=== PATIENT | female | born 1960 | race Caucasian/White ===

== ENCOUNTER 2016-05-16 08:32 | Day surgery (SDC) | payer MEDICARE ==
[2016-05-16] VITALS (12 sets, daily range): BP systolic 118–151; BP diastolic 60–82; PULSE 58–68; TEMP 97.8–98.7
[~2016-05-16] VITALS: Ht 160 cm; Wt 63.6 kg
[~2016-05-16 08:32] MED LIST: BACTROBAN 22GM22 GM TP; BETAPACE 120MG120 MG PO; CALCIUM CARBON500 MG PO; COREG 3.123.125 MG/T PO; COUMADIN 5MG5 MG/TAB PO; DIPHENHYDRAMINE25 MG PO; LASIX 20MG TABL20 MG PO; LOPRESSOR 550 MG/TAB PO; NICODERM C21 MG/PATC TOP; NITROSTAT0.4 MG/TAB SL; NORCO 325 MG-7.1 TAB PO; PRILOSEC 20MG20 MG PO; PRINIVIL10 MG PO; RESTORIL 1515 MG/CAP PO; ROXICODONE 55 MG/TAB PO; RYTHMOL225 MG PO
[2016-05-16] MEDS ORDERED: LOVENOX 6060 MG/0.6 SQ (08:56)
[2016-05-16] MEDS ORDERED: PACERONE100 MG PO (08:57)
[2016-05-16 09:30] LABS: MEAN CELL VOLUME 99 fl (80.0-100.0); MEAN CORPUSCULAR HGB CONC 32 g/dl (33.0-37.0); MEAN PLATELET VOLUME 10.2 fl (7.4-10.4); PLATELET COUNT 144 K/mm3 (130-400); RED BLOOD COUNT 3.61 M/mm3 (4.10-5.30); REDCELL DISTRIBUTION WIDTH-CV 13.7 % (11.5-14.5); WHITE BLOOD COUNT 4.2 K/mm3 (4.8-10.8)
[2016-05-16 09:31] LABS: HEMATOCRIT 35.7 % (37.0-47.0); HEMOGLOBIN 11.5 g/dl (12.5-16.0); MEAN CORPUSCULAR HEMOGLOBIN 32 pg (27.0-31.0)
[2016-05-16 09:43] LABS: CALCIUM 9.1 mg/dL (8.4-10.2); CREATININE, serum 1.2 mg/dL (0.52-1.25); POTASSIUM 4.4 mmol/L (3.4-5.0)
[2016-05-16 09:50] LABS: INR 1.2 (0.8-3.0); PROTHROMBIN TIME 13.8 SECONDS (9.7-12.8)
[2016-05-16] MEDS ORDERED: PERCOCET 325 MG1 TA2 PO (16:53)
[2016-05-17 03:48] VITALS: BP 135/57; PULSE 60; TEMP 98.8
[2016-05-17 07:59] VITALS: BP 124/70; PULSE 64; TEMP 98
[2016-05-17] MEDS ORDERED: CEPHALEXIN500 M1 PO (10:16)
== END 2016-05-17 11:35 | disposition home or self-care (01) ==
LOC: COL.RAD 08:32 → MEDICAL 13:00 → COL.RAD 05-17 11:35
PROVIDERS: Internal Medicine Interventional Cardiology
DX: T82.897A Other specified complication of cardiac prosthetic devices, implants and grafts, initial encounter (principal)
CPT/HCPCS: OP; C1769; C1894; C1895; J0690; J1650; J2250; J3010; J7030; Q9967

== ENCOUNTER 2023-11-05 20:03 | Emergency (ER) | payer MEDICARE ==
[~2023-11-05] VITALS: Ht 160 cm; Wt 59.1 kg
[~2023-11-05 20:03] MED LIST changes: +CEPHALEXIN500 M1 PO; +COUMADIN 1MG1 MG/TAB; +COUMADIN 6MG6 MG/TAB PO; +DEBROX OT; +EUTHYROX50 MCG; +EUTHYROX50 MCG PO; +FIORICET 325 MG1 TA1 PO; +K-DUR 10 MEQ T10 MEQ PO; +LEXAPRO 10MG10 MG PO; +LOVENOX 6060 MG/0.6 SQ; +METOPROLOL TART75 MG PO; +MIRALAX PA17 GM/Dose PO; +NICODERM C7 MG/PATCH TD; +NORVASC 5MG5 MG/TAB PO; +PACERONE100 MG PO; +PERCOCET 325 MG1 TA2 PO; +PREDNISONE20 MG PO; +PROAIR HFA0.09 MG/AC IH; +RT ADVAIR 528 DISKUS IH; +RT SPIRIVA18 MCG IH; +SENNA-S 50 MG-81 TAB PO; +TOPROL XL 25MG25 MG PO; +TOPROL XL100 MG PO; +TYLENOL 500MG500 MG PO; +VENTOLIN0.09 MG IH; +WIXELA 500-501 EACH IH; +ZOFRAN ODT4 MG PO
[2023-11-05 20:08] VITALS: TEMP 101.2
[2023-11-05 21:43] LABS: COLLECTION METHOD CLEAN CATCH
[2023-11-05 21:47] LABS: BASO % 0.5 % (0.0-2.0); EOS % 0.5 % (0.0-4.0); GRAN # 6.6 K/mm3 (1.4-6.5); GRAN % 74.7 % (42.2-75.2); HEMATOCRIT 37.9 % (37.0-47.0); HEMOGLOBIN 12.8 g/dl (12.5-16.0); LYMPH # 1.2 K/mm3 (1.2-3.4); LYMPH % 13.4 % (20.0-51.0); MEAN CELL VOLUME 93 fl (80.0-100.0); MEAN CORPUSCULAR HEMOGLOBIN 32 pg (27-31); MEAN CORPUSCULAR HGB CONC 34 g/dl (33.0-37.0); MEAN PLATELET VOLUME 10.1 fl (7.4-10.4); MONO # 0.9 K/mm3 (0.1-0.6); MONO % 10.7 % (1.7-9.3); PLATELET COUNT 161 K/mm3 (130-400); RED BLOOD COUNT 4.06 M/mm3 (4.10-5.30); REDCELL DISTRIBUTION WIDTH-CV 13.8 % (11.5-14.5)
[2023-11-05 21:56] LABS: PH 5.5 (5.0-8.5); URINE APPEARANCE CLEAR (CLEAR/HAZY); URINE BLOOD NEGATIVE (NEGATIVE); URINE COLOR YELLOW (YELLOW); URINE GLUCOSE NEGATIVE (NEGATIVE); URINE KETONE NEGATIVE (NEGATIVE); URINE NITRATE NEGATIVE (NEGATIVE); URINE PROTEIN(semi-quant) 1+ (NEGATIVE)
[2023-11-05 22:00] LABS: BILIRUBIN,TOTAL 1.5 mg/dL (0.2-1.2); CREATININE, serum 1.01 mg/dL (0.57-1.11); MAGNESIUM 1.9 mg/dL (1.6-2.6); POTASSIUM 3.7 mEq/L (3.5-4.5)
[2023-11-05] MEDS ORDERED: NS 1,000 ML IV ONE (22:00)
[2023-11-05 22:06] LABS: TROPONIN-I 0.019 ng/mL (0.00-0.033)
[2023-11-05] MEDS ORDERED: CEPHALEXIN500 M1 PO (23:06)
[2023-11-05] MEDS ORDERED: Ketorolac 15 MG/ML VIAL IV ONE (23:15)
[2023-11-05] MEDS ORDERED: Cephalexin 500 MG CAP PO ONE (23:15)
[2023-11-05 23:23] VITALS: BP 135/70; PULSE 77
== END 2023-11-05 23:23 | disposition home or self-care (01) ==
LOC: COL.ER 20:03
PROVIDERS: Emergency Medicine
DX: N39.0 Urinary tract infection, site not specified (principal); L03.114 Cellulitis of left upper limb; F17.200 Nicotine dependence, unspecified, uncomplicated
CPT/HCPCS: J1885; J7030